=== PATIENT | male | born 1945 | race Caucasian/White ===

== ENCOUNTER 2017-05-10 09:05 | Day surgery (SDC) | payer MEDICARE ==
[~2017-05-10] VITALS: Ht 182.9 cm; Wt 93.4 kg
[~2017-05-10 09:05] MED LIST: ADULT ASPIRIN E81 MG PO; ADVAIR DISKU IN; ATORVASTATIN CA80 MG PO; BEVESPI AEROSPH1 AER; BRILINTA90 MG PO; BUPROPION HCL150 M1 PO; CITALOPRAM20 MG PO; CITALOPRAM40 MG PO; CYCLOBENZAPR10 MG PO; FUROSEMIDE20 MG PO; ISOSORB MONO30 MG PO; LANTUS100 UNIT/M SC; MELOXICAM15 MG PO; METOPROLOL TART50 MG PO; OMEPRAZOLE20 M1 PO; ROPINIROLE2 MG PO
[2017-05-10] MEDS ORDERED: OXYCOD/APAP1 TA4 PO (09:22)
[2017-05-10] MEDS ORDERED: NORCO1 TA1 PO (12:19)
[2017-05-10] MEDS ORDERED: KEFLEX500 MG PO (12:19)
[2017-05-10 12:37] VITALS: BP 135/66
== END 2017-05-10 12:52 | disposition home or self-care (01) ==
LOC: ORM 09:05
PROVIDERS: ATTEND Podiatrist Foot & Ankle Surgery
PROC: 0Y6S0Z1 Detachment at Left 2nd Toe, High, Open Approach (ICD-10-PCS; principal; 2017-05-10)
DX: M20.42 Other hammer toe(s) (acquired), left foot (principal); I11.9 Hypertensive heart disease without heart failure; M19.90 Unspecified osteoarthritis, unspecified site; E78.5 Hyperlipidemia, unspecified; J44.9 Chronic obstructive pulmonary disease, unspecified; F17.210 Nicotine dependence, cigarettes, uncomplicated; E11.69 Type 2 diabetes mellitus with other specified complication; M86.8X6 Other osteomyelitis, lower leg; L98.499 Non-pressure chronic ulcer of skin of other sites with unspecified severity

== ENCOUNTER 2017-05-16 16:14 | Emergency (ER) | payer MEDICARE ==
[~2017-05-16] VITALS: Ht 182.9 cm; Wt 95.0 kg
[~2017-05-16 16:14] MED LIST changes: +KEFLEX500 MG PO; +NORCO1 TA1 PO; +OXYCOD/APAP1 TA4 PO
[2017-05-16 17:28] LABS: HEMATOCRIT 38.4 % (39.0-50.0); HEMOGLOBIN 11.8 g/dl (14.0-18.0); IMMATURE GRANULOCYTES 0.7 % (0.0-1.0); MEAN CELL VOLUME 88.5 fL CALC (80.0-100.0); MEAN CORPUSCULAR HGB 27.2 pG CALC (26.0-32.0); MEAN CORPUSCULAR HGB CONC 30.7 g/L CALC (32.0-36.0); NEUT# 5.06 thou/uL (1.82-7.42); RED BLOOD COUNT 4.34 mill/uL (4.70-6.10); RED CELL DISTRI WIDTH 19.2 % (11.5-15.5)
[2017-05-16 17:46] LABS: ALBUMIN 3.7 g/dL (3.2-5.0); ALKALINE PHOSPHATASE 105 u/l (38-126); ANION GAP 20 (6-22 (CALC)); BILIRUBIN, TOTAL 0.3 mg/dL (0.0-1.4); BUN 16 mg/dL (8-23); BUN/CREATININE RATIO 15 (12-20 (CALC)); CARBON DIOXIDE 20 mmol/l (22-30); CHLORIDE 107 mmol/l (95-108); CREATININE 1.1 mg/dL (0.7-1.3); GFR > 60 ML/MIN (>=60 (CALC)); GFR FOR AFR.AMER. > 60 ML/MIN (>=60 (CALC)); POTASSIUM 4.4 mmol/l (3.5-5.1); SGOT/AST 16 u/l (19-48); SGPT/ALT 28 u/l (11-66); SODIUM 142 mmol/l (137-146); TOTAL PROTEIN 6.3 g/dL (6.3-8.2)
[2017-05-16 18:12] VITALS: BP 104/55
== END 2017-05-16 18:12 | disposition home or self-care (01) ==
LOC: ED 16:14
PROVIDERS: Emergency Medicine
DX: R10.9 Unspecified abdominal pain (principal); F17.210 Nicotine dependence, cigarettes, uncomplicated; I25.2 Old myocardial infarction; Z95.1 Presence of aortocoronary bypass graft; Z87.442 Personal history of urinary calculi; Z95.5 Presence of coronary angioplasty implant and graft